=== PATIENT | male | born 1990 | race Caucasian/White ===

== ENCOUNTER 2020-01-08 17:40 | Emergency (ER) | payer OTHER ==
[2020-01-08] MEDS ORDERED: DIPHTH,PERTUSS(ACELL),TET 0.5 ML DISP.SYRIN IM ONE ×2 (17:52→17:56)
--- NOTE | 2020-01-08 17:52 | PDOC ---
Rapid Medical Evaluation Time Seen by Provider: 01/08/20 17:49 Medical Evaluation: Allergies Allergy/AdvReac Type Severity Reaction Status Date / Time No Known Allergies Allergy Verified 11/21/15 11:41 01/08/20 17:49 Pt presents for evaluation of cat bites and scratches that happened earlier today. He states that it is the family cat, but they are not sure if the cat has its rabies vaccines. States he got bit/scratched to the LLE just prior to arrival. Exam: multiple scratches and bite gonzales to the L lower extremity Orders: tetanus Pt to proceed to the ER for evaluation Discharge Disposition - Diagnosis Cat bite Qualifiers: Encounter type: initial encounter Qualified Code(s): W55.01XA - Bitten by cat, initial encounter - Referrals - Patient Instructions - Post Discharge Activity
[2020-01-08 17:54] VITALS: BP 124/81; PULSE 108; TEMP 98.8; BMI 31.1
--- NOTE | 2020-01-08 18:15 | PDOC ---
History of Present Illness - General Chief Complaint: Bite Stated Complaint: ANIMAL BITES- CAT Time Seen by Provider: 01/08/20 17:49 - History of Present Illness Initial Comments: 01/08/20 18:13 29-year-old male no comorbidities or allergies presents for evaluation after domestic cat bite unvaccinated home cat owned by the patient bit the patient on the left leg in a provoked attack when his son accidentally stepped on the cat. Cat was otherwise acting normal baseline behavior and the family has the ability to quarantine the cat and observe his behavior. Past History - Medical History Allergies/Adverse Reactions: Allergies Allergy/AdvReac Type Severity Reaction Status Date / Time No Known Allergies Allergy Verified 01/08/20 17:49 Home Medications: Ambulatory Orders No Home Medications 0 dose .ROUTE UTDICT 11/23/11 Ibuprofen [Motrin -] 800 mg PO Q6H #30 tablet 11/21/15 Amox-Tr/K Cl [Augmentin - 875Mg Tablet] 1 tab PO BID #20 tablet 01/08/20 - Psycho-Social/Smoking History Smoking Status: Yes Smoking History: Never smoked Have you smoked in the past 12 months: No Number of Cigarettes Smoked Daily: 2 - Substance Abuse Hx (Audit-C & DAST Scrn) How often the patient has a drink containing alcohol: Monthly or less Number of drinks the patient has on a typical day: 1 or 2 How often the patient has six or more drinks on one occasion: Never Score: In Men: 4 or > Positive; In Women: 3 or > Positive: 1 Screen Result (Pos requires Nsg. Audit-10AR): Negative In the last yr the pt used illegal drug/Rx for NonMed reason: No Score: Yes response is considered Positive: 0 Screen Result (Positive result requires Nsg. DAST-10): Negative Review of Systems - Review of Systems Integumentary: Yes: See HPI *Physical Exam - Vital Signs Last Vital Signs Temp Pulse Resp BP Pulse Ox 98.8 F 108 H 18 124/81 100 01/08/20 17:49 01/08/20 17:49 01/08/20 17:49 01/08/20 17:49 01/08/20 17:49 - Physical Exam 01/08/20 18:14 Superficial lacerations and small puncture wound at the left ankle and anterior aspect of the left knee on the skin overlying the VMO. ED Treatment Course - Medications Given in the ED: ED Medications Discontinued Medications Generic Name Dose Route Start Last Admin Trade Name Adelso PRN Reason Stop Dose Admin Diphtheria/Tetanus/Acell Pertussis 0.5 ml 01/08/20 17:52 01/08/20 18:06 Boostrix - IM 01/08/20 17:53 0.5 ml .ONCE ONE Administration Medical Decision Making - Medical Decision Making 01/08/20 18:14 Augmentin for cat bite wound care with soap and water follow-up with primary care physician I have reviewed the pathophysiology with the patient. They are in agreement with the treatment plan all questions were answered to their satisfaction. Understanding for follow-up without fail was also conveyed to the patient. Again they are in agreement. Department of Health paperwork filled out patient to follow-up with both primary care physician as well as cloth finishing range tender. Discharge - Discharge Information Problems reviewed: Yes Clinical Impression/Diagnosis: Cat bite Qualifiers: Encounter type: initial encounter Qualified Code(s): W55.01XA - Bitten by cat, initial encounter Condition: Stable Disposition: HOME - Admission No - Additional Discharge Information Prescriptions: Amox-Tr/K Cl [Augmentin - 875Mg Tablet] 1 tab PO BID #20 tablet - Follow up/Referral - Patient Discharge Instructions Additional Instructions: Please take the antibiotics as directed and return to the emergency room should you have any further issues. Please quarantine the cat for the next 14 days and observe his behavior also follow-up with the cats cloth finishing range tender in 1 to 2 days without fail for further evaluation of the animal. Also follow-up with your primary care physician in 1 to 2 days without fail for wound check if you cannot follow-up with your primary care physician for a wound check return to the emergency room for a wound check in 48 hours. Again finish all the antibiotics as directed and you may take Tylenol and Motrin as directed for pain. - Post Discharge Activity
--- OUTSIDE RECORDS SUMMARY | 2020-01-08 20:58 | XMS ---
:1990 Author Organization [facility] Support Name Relationship Address Phone ALS Unavailable [address] [facility] [address] [address] MICHAEL GRADY PARTNER [address] [address] [place] [address] Re-disclosure Warning The records that you are about to access may contain information from federally- assisted alcohol or drug abuse programs. If such information is present, then the following federally mandated warning applies: This information has been disclosed to you from records protected by federal confidentiality rules (42 CFR part 2). The federal rules prohibit you from making any further disclosure of this information unless further disclosure is expressly permitted by the written consent of the person to whom it pertains or as otherwise permitted by 42 CFR part 2. A general authorization for the release of medical or other information is NOT sufficient for this purpose. The Federal rules restrict any use of the information to criminally investigate or prosecute any alcohol or drug abuse patient.The records that you are about to access may contain highly sensitive health information, the redisclosure of which is protected by Article 27-F of the [facility] Public Health law. If you continue you may haveaccess to information: Regarding HIV / AIDS; Provided by facilities licensed or operated by the [facility] Office of Mental Health; or Provided by the [facility] Office for People With Developmental Disabilities. If such information is present, then the following [facility] mandated warning applies: This information has been disclosed to you from confidential records which are protected by state law. State law prohibits you from making any further disclosure of this information without the specific written consent of the person to whom it pertains, or as otherwise permitted by law. Any unauthorized further disclosure in violation of state law may result in a fine or shelter sentence or both. A general authorization for the release of medical or other information is NOT sufficient authorization for further disclosure. Insurance Providers Payer name Policy type Policy ID Covered Covered constitution party's Policy P geri / Coverage constitution party ID relationship to [place] [employer] type [place] [id number]
== END 2020-01-08 19:02 | disposition home or self-care (01) ==
LOC: JERFT 17:40
PROC: 3E0234Z Introduction of Serum, Toxoid and Vaccine into Muscle, Percutaneous Approach (ICD-10-PCS; principal; 2020-01-08)
DX: S80.812A Abrasion, left lower leg, initial encounter (principal)
CPT/HCPCS: 90715; 99284-25

== ENCOUNTER 2023-03-27 21:37 | Emergency (ER) | payer OTHER ==
[2023-03-27 21:50] VITALS: BP 153/104; PULSE 79; RESP 18; TEMP 98.2; BMI 30.9
[2023-03-28] MEDS ORDERED: KETOROLAC TROMETHAMINE 30 MG/1 ML VIAL IM ONE (00:09)
[2023-03-28] MEDS ORDERED: KETOROLAC TROMETHAMINE 30 MG/1 ML VIAL ONE (00:12)
== END 2023-03-28 00:22 | disposition home or self-care (01) ==
LOC: JER 21:37
PROC: 3E0233Z Introduction of Anti-inflammatory into Muscle, Percutaneous Approach (ICD-10-PCS; principal; 2023-03-28)
DX: S13.4XXA Sprain of ligaments of cervical spine, initial encounter (principal); M54.2 Cervicalgia; V49.40XA Driver injured in collision with unspecified motor vehicles in traffic accident, initial encounter; Y93.I9 Activity, other involving external motion
CPT/HCPCS: 72040-TC; 99284-25